=== PATIENT | male | born 1985 | race Caucasian/White ===

== ENCOUNTER 2021-03-10 22:50 | Emergency (ER) | payer OTHER ==
[2021-03-11 00:05] LABS: HEMOGLOBIN 15.4 gm/dl (14.0-17.5); RED BLOOD COUNT 4.56 M/UL (4.20-5.50); WHITE BLOOD COUNT 9.6 K/UL (4.5-11.0)
[2021-03-11 00:27] LABS: BUN/CREATININE RATIO 14 (0-10)
[2021-03-11] MEDS ORDERED: KEPPRA500 MG PO (05:28)
== END 2021-03-11 06:00 | disposition home or self-care (01) ==
LOC: ER1 22:50
PROVIDERS: Physician Assistant Medical
DX: G40.409 Other generalized epilepsy and epileptic syndromes, not intractable, without status epilepticus (principal); Z79.899 Other long term (current) drug therapy
CPT/HCPCS: 70450; 71045; 72125; 80053; 80307; 81001; 85025; 96374; 96375; 99284; G0480; J2060

== ENCOUNTER 2021-03-11 14:19 | Emergency (ER) | payer OTHER ==
[~2021-03-11 14:19] MED LIST: KEPPRA500 MG PO
[2021-03-11 14:39] LABS: HEMOGLOBIN 14.7 gm/dl (14.0-17.5); RED BLOOD COUNT 4.35 M/UL (4.20-5.50); WHITE BLOOD COUNT 7.2 K/UL (4.5-11.0)
[2021-03-11 14:53] LABS: BUN/CREATININE RATIO 15 (0-10)
== END 2021-03-11 18:20 ==
LOC: ER1 14:19
PROVIDERS: Emergency Medicine
DX: R45.851 Suicidal ideations (principal); F17.200 Nicotine dependence, unspecified, uncomplicated; Z20.822 Contact with and (suspected) exposure to COVID-19
CPT/HCPCS: 70450; 70498; 72125; 80053; 85025; 93005; 99285; J2060; Q9967; U0002